=== PATIENT | male | born 1985 | race Caucasian/White ===

== ENCOUNTER 2022-02-02 00:42 | Emergency (ER) | payer BC ==
[2022-02-02] MEDS ORDERED: IBUPROFEN600 MG PO (03:14)
== END 2022-02-02 03:20 | disposition home or self-care (01) ==
LOC: ER1 00:42
DX: S62.315A Displaced fracture of base of fourth metacarpal bone, left hand, initial encounter for closed fracture (principal); S62.317A Displaced fracture of base of fifth metacarpal bone, left hand, initial encounter for closed fracture; F17.290 Nicotine dependence, other tobacco product, uncomplicated; W22.01XA Walked into wall, initial encounter; Y92.009 Unspecified place in unspecified non-institutional (private) residence as the place of occurrence of the external cause
CPT/HCPCS: 26605; 73130; 99283

== ENCOUNTER → 2022-02-04 | Outpatient (CLI) | payer BC ==
[~2022-02-04] MED LIST: AMOXICILLIN875 MG PO; HYDROCODON-ACE1 EAC6 PO; IBU600 MG PO; IBUPROFEN600 MG PO; PERIOGARD473 ML MM
== END ==
LOC: KOH-I 08:50
DX: S62.315A Displaced fracture of base of fourth metacarpal bone, left hand, initial encounter for closed fracture (principal); S62.307A Unspecified fracture of fifth metacarpal bone, left hand, initial encounter for closed fracture; S62.142A Displaced fracture of body of hamate [unciform] bone, left wrist, initial encounter for closed fracture; S62.132A Displaced fracture of capitate [os magnum] bone, left wrist, initial encounter for closed fracture; X58.XXXA Exposure to other specified factors, initial encounter; F17.210 Nicotine dependence, cigarettes, uncomplicated; Z88.6 Allergy status to analgesic agent
CPT/HCPCS: 73200

== ENCOUNTER → 2022-02-08 | Day surgery (SDC) | payer BC ==
[2022-02-08 10:48] LABS: BUN/CREATININE RATIO 18 (0-10)
== END | disposition home or self-care (01) ==
LOC: OR 09:49
PROVIDERS: Orthopaedic Surgery
DX: S63.055A Dislocation of other carpometacarpal joint of left hand, initial encounter (principal); S62.395A Other fracture of fourth metacarpal bone, left hand, initial encounter for closed fracture; S62.397A Other fracture of fifth metacarpal bone, left hand, initial encounter for closed fracture; F17.210 Nicotine dependence, cigarettes, uncomplicated; X58.XXXA Exposure to other specified factors, initial encounter
CPT/HCPCS: 73130; 76000; 80048; 93005; J0690; J1100; J1885; J2001; J2250; J2405; J2704; J3010; J7120